=== PATIENT | male | born 1990 | race Two or more races ===

== ENCOUNTER 2024-11-09 15:18 | Emergency (ER) | payer MEDICAID, OTHER ==
[2024-11-09] MEDS: Lidocaine/Epineph/Tetracaine 3 ML Syringe TOP ONE (15:40)
== END 2024-11-09 17:30 | disposition home or self-care (01) ==
LOC: JP.ED 15:18
DX: S61.210A Laceration without foreign body of right index finger without damage to nail, initial encounter (principal); F17.210 Nicotine dependence, cigarettes, uncomplicated; Z88.8 Allergy status to other drugs, medicaments and biological substances; X58.XXXA Exposure to other specified factors, initial encounter; Y93.89 Activity, other specified; Y99.0 Civilian activity done for income or pay
CPT/HCPCS: 12001; 99282; A9270